=== PATIENT | female | born 1965 | race Two or more races ===

== ENCOUNTER 2018-07-07 09:30 | Outpatient (AMBR) | payer MEDICAID, SELFPAY ==
--- NOTE | 2018-06-19 12:57 | PT.ODAYNRPT ---
PT Outpatient Daily Note Date of Service: June 19, 2018 OP Daily Note Visit Reasons: left knee Outpatient Physical Therapy Treatment Date: 06/19/18 Subjective: pt reported soreness from last visit but doing better today. pt had a follow up with surgeon a few days ago and he stated she seemed good to go back to work. pt does not feel ready for work due to scared of lifting heavy boxes. Objective: see flow sheet. Assessment: added wall sits and pt tolerated well but needed cuing to keep back against the wall. pt performed the kneeling a little better today using the foam pad. during MT of knee flexion pt is flexing knee at about 110 degrees with no pain. due to being compliant at home pt is progressing well. Plan: continue POC per PT. Length of Time (minutes) of Treatment: 30 Minutes Office Procedures PT Procedures PT Date of Service: 06/25/18 Therapeutic Exercise 30 minutes: Yes PT Procedures PT Date of Service: 07/07/18 Therapeutic Exercise 30 minutes: Yes PT Procedures PT Date of Service: 06/19/18 Therapeutic Exercise 30 minutes: Yes PT Procedures PT Date of Service: 06/29/18 Therapeutic Exercise 30 minutes: Yes PT Procedures PT Date of Service: 07/02/18 Therapeutic Exercise 30 minutes: Yes
--- NOTE | 2018-06-25 18:25 | PT.ODAYNRPT ---
PT Outpatient Daily Note Date of Service: June 25, 2018 OP Daily Note Visit Reasons: left knee Outpatient Physical Therapy Treatment Date: 06/25/18 Subjective: The knee has been doing better, almost no pain Objective: See F/S for therex MT: PPM into knee flexion with overpressure Gr4+ x10 Assessment: Good improvement with knee flexion PROM to 118 deg today with good overpressure tolerance. Plan: Continue per POC Length of Time (minutes) of Treatment: 30 Minutes Office Procedures PT Procedures PT Date of Service: 06/25/18 Therapeutic Exercise 30 minutes: Yes PT Procedures PT Date of Service: 06/19/18 Therapeutic Exercise 30 minutes: Yes
--- NOTE | 2018-06-29 14:22 | PT.ODAYNRPT ---
PT Outpatient Daily Note Date of Service: June 29, 2018 OP Daily Note Visit Reasons: left knee Outpatient Physical Therapy Treatment Date: 06/29/18 Subjective: The knee has been doing better, almost no pain Objective: See F/S for therex MT: PPM into knee flexion with overpressure Gr4+ x5 Assessment: Good improvement with knee flexion PROM to 123 deg today with good overpressure tolerance. Plan: Continue per POC to finish remaining visits Length of Time (minutes) of Treatment: 30 Minutes Office Procedures PT Procedures PT Date of Service: 06/25/18 Therapeutic Exercise 30 minutes: Yes PT Procedures PT Date of Service: 06/19/18 Therapeutic Exercise 30 minutes: Yes PT Procedures PT Date of Service: 06/29/18 Therapeutic Exercise 30 minutes: Yes
--- NOTE | 2018-07-02 11:31 | PT.ODAYNRPT ---
PT Outpatient Daily Note Date of Service: July 02, 2018 OP Daily Note Visit Reasons: left knee Outpatient Physical Therapy Treatment Date: 07/02/18 Subjective: pt states she is now able to kneel at [employer] yesterday for at least 2 mins until pain. pt states compliance with [facility]. Objective: see flow sheet. Assessment: during kneeling exercise using the foam pad, pt increased her pace but was not able to touch her heels. needs a little more ROM to touch heels. pt has good ROM of the knee during knee PROM and denied pain. added ankle weight to some standing exercises in which she did well with no compensation nor pain. no muscle fatigue noted after ther ex. Plan: continue POC per PT. Length of Time (minutes) of Treatment: 30 Minutes Office Procedures PT Procedures PT Date of Service: 06/25/18 Therapeutic Exercise 30 minutes: Yes PT Procedures PT Date of Service: 06/19/18 Therapeutic Exercise 30 minutes: Yes PT Procedures PT Date of Service: 06/29/18 Therapeutic Exercise 30 minutes: Yes PT Procedures PT Date of Service: 07/02/18 Therapeutic Exercise 30 minutes: Yes
--- NOTE | 2018-07-02 12:56 | PTNOTE_ITS ---
PT Outpatient Daily Note Date of Service: July 02, 2018 OP Daily Note Visit Reasons: left knee Outpatient Physical Therapy Treatment Date: 07/02/18 Subjective: pt states she is now able to kneel at congreg[employer] yesterday for at least 2 mins until pain. pt states compliance with [facility]. Objective: see flow sheet. Assessment: during kneeling exercise using the foam pad, pt increased her pace but was not able to touch her heels. needs a little more ROM to touch heels. pt has good ROM of the knee during knee PROM and denied pain. added ankle weight to some standing exercises in which she did well with no compensation nor pain. no muscle fatigue noted after ther ex. Plan: continue POC per PT. Length of Time (minutes) of Treatment: 30 Minutes Office Procedures PT Procedures PT Date of Service: 06/25/18 Therapeutic Exercise 30 minutes: Yes PT Procedures PT Date of Service: 06/19/18 Therapeutic Exercise 30 minutes: Yes PT Procedures PT Date of Service: 06/29/18 Therapeutic Exercise 30 minutes: Yes PT Procedures PT Date of Service: 07/02/18 Therapeutic Exercise 30 minutes: Yes
--- NOTE | 2018-07-07 10:10 | PT.ODS1RPT ---
PT OP Progress/Discharge Note Date of Service: July 07, 2018 Progress Note/DC Note Progress Note/Discharge Note: DC Note Patient Information Visit Reasons: left knee Admission Reason: L TKA Service Continue Service or Discharge: Discharge Discharge Date: 07/07/18 Status Subjective: The knee has been doing better, almost no pain. 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 Objective: See F/S for therex MT: STM to anterior knee with [place] x5' L knee AROM: Ext: full Flexion: 115 deg PROM: Flexion: 123 deg Strength: Quads: 4+/5 HS: 4+/5 SLR: 80 deg Assessment: Pt has attended 06/24 Rx visits on this authorization for 15 total Rx visits and met all goals established at evaluation. She has made good improvement with knee flexion PROM to 123 deg with good overpressure tolerance. Pt is ambulating community distances and quad and hamstring strength has improved to 4+/5 to meet the goal. Plan: D/C with [facility] Office Procedures PT Procedures PT Date of Service: 06/25/18 Therapeutic Exercise 30 minutes: Yes PT Procedures PT Date of Service: 07/07/18 Therapeutic Exercise 30 minutes: Yes PT Procedures PT Date of Service: 06/19/18 Therapeutic Exercise 30 minutes: Yes PT Procedures PT Date of Service: 06/29/18 Therapeutic Exercise 30 minutes: Yes PT Procedures PT Date of Service: 07/02/18 Therapeutic Exercise 30 minutes: Yes
== END 2018-07-07 10:09 | disposition home or self-care (01) ==
PROVIDERS: PCP Physician Assistant; Referring Provider Physician Assistant; Visit Provider Orthopaedic Surgery
DX: I10 Essential (primary) hypertension (principal)
CPT/HCPCS: 97110

== ENCOUNTER → 2025-09-30 | Outpatient (CLI) | payer MEDICAID, SELFPAY ==
--- NOTE | 2025-09-30 10:00 | XR_ITS ---
Examination: Screening digital mammography, bilateral Computer aided detection 3-D breast Tomosynthesis, bilateral Date and time of exam: September 30, 2025, 1005 hours, compared to mammograms dating to April 06, 2008 Indication: Screening Technique: Nonmagnified MLO, CC views of the breasts to been obtained, reconstructed from 3-D Tomosynthesis images. R2 computer aided detection program utilized for evaluation of suspicious masses and/or abnormal calcifications. 3-D Tomosynthesis images obtained. Findings: Scattered areas of fibroglandular density. Benign calcifications. Prominent left axillary lymph nodes Impression: BI-RADS Category 0: Incomplete: Need additional imaging evaluation Recommend bilateral breast and axillary sonography given the prominent left axillary lymph nodes
== END | disposition home or self-care (01) ==
LOC: CDIM 09:56
PROVIDERS: Referring Provider Nurse Practitioner Primary Care; Visit Provider Nurse Practitioner Primary Care
DX: Z12.31 Encounter for screening mammogram for malignant neoplasm of breast (principal); R92.8 Other abnormal and inconclusive findings on diagnostic imaging of breast
CPT/HCPCS: 77063; 77067